=== PATIENT | male | born 1945 | race Caucasian/White ===

== ENCOUNTER → 2017-07-23 14:07 | Outpatient (CLI) | payer MEDICARE, OTHER, SELFPAY ==
[2017-07-23 16:01] LABS: Erythrocyte Sedimentation Rate 27 mm/hr (0-20)
[2017-07-23 16:15] LABS: Vitamin D,25 Hydroxy 10.2 ng/mL (19.95-100.01)
[2017-07-23 16:24] LABS: Anion Gap 8 (5-15); BUN 28 mg/dL (7-18); BUN/Creat Ratio 27.2 RATIO (10-20); Calcium,Total 9.1 mg/dL (8.5-10.1); Chloride 106 mmol/L (98-107); Cholesterol 236 mg/dL (200); Creatinine, Serum 1.03 mg/dL (0.70-1.30); EST Glomerular Filtration Rate 75 mL/min (>60); Est Glom Filt Rate - Afr Amer 91 mL/min (>60); Glucose 88 mg/dL (70-110); High Density Lipoprotein 40 mg/dL; Magnesium 2.2 mg/dL (1.6-2.6); Potassium 4.3 mmol/L (3.5-5.1); Sodium Level 139 mmol/L (136-145); Thyroid Stim Hormone (TSH) 1.94 uIU/mL (0.358-3.74); Triglycerides 334 mg/dL; Very Low Density Lipoprotein 67 mg/dL (5-40)
== END ==
PROVIDERS: Family Provider Family Medicine; PCP Family Medicine; Visit Provider Family Medicine
DX: I10 Essential (primary) hypertension (principal); R25.2 Cramp and spasm; F32.9 Major depressive disorder, single episode, unspecified
CPT/HCPCS: 36415; 80048; 80061; 82306; 83735; 84443; 85652

== ENCOUNTER → 2017-10-13 13:34 | Outpatient (CLI) | payer MEDICARE, OTHER, SELFPAY ==
[2017-10-13 14:19] LABS: PSA,Total- Diagnostic 0.61 ng/mL (0.0-4.0)
== END ==
PROVIDERS: Family Provider Family Medicine; PCP Family Medicine; Visit Provider Nurse Practitioner Adult Health
DX: R97.20 Elevated prostate specific antigen [PSA] (principal)
CPT/HCPCS: 36415; 84153

== ENCOUNTER 2017-12-06 01:20 | Emergency (ER) | payer MEDICARE, OTHER, SELFPAY ==
[2017-12-06 01:21] VITALS: BP 152/80; PULSE 53; RESP 16; TEMP 36.5; O2SAT 96; BMI 33.0
[2017-12-06 01:27] VITALS: O2SAT 95
--- NOTE | 2017-12-06 01:52 | CT_ITS ---
STUDY: CT BRAIN WITHOUT CONTRAST REASON FOR EXAM: Male, 72 years old. ROLLED OUT OF BED AND HIT HEAD ON TABLE, ON ELIQUIS, PT HAS LACERATION POSTERIOR HEAD AND C/O NECK PAIN RADIATION DOSAGE (If Supplied By Facility): CTDIvol = ( 44.99 ) mGy, DLP = ( 863.60 ) mGycm TECHNIQUE: Transaxial CT imaging of the brain was performed without administration of intravenous contrast material. Individualized dose optimization techniques were used for this CT. COMPARISON: None. FINDINGS: Normal soft tissue structures. Normal calvarium. There is mild cerebral atrophy with widening of the extra-axial spaces and ventricular dilatation. There are areas of decreased attenuation within the white matter tracts of the supratentorial brain, consistent with microvascular disease changes. Normal basal ganglia and thalami. Normal brainstem. Normal cerebellum. There is no intracranial hemorrhage. There are no findings of an acute ischemic infarction. Normal visualized paranasal sinuses. CT/Brain/Head without Contrast IMPRESSION: Chronic involutional changes of the brain. Electronically Signed: Yuri Callejas MD at 3:26 EDT Tel , Service support ,
--- NOTE | 2017-12-06 02:08 | CT_ITS ---
STUDY: CT CERVICAL SPINE WITHOUT CONTRAST REASON FOR EXAM: Male, 72 years old. Neck pain RADIATION DOSAGE (If Supplied By Facility): CTDIvol = ( 26.74 ) mGy, DLP = ( 629.42 ) mGycm TECHNIQUE: High resolution transaxial imaging was performed without contrast material. Sagittal and coronal images were reconstructed. Individualized dose optimization techniques were used for this CT. COMPARISON: None FINDINGS: Normal craniovertebral junction. Normal anterior atlantoaxial articulation. Normal odontoid process. Normal cervical lordosis. Normal vertebral bodies and posterior osseous elements. C2-3: Normal endplates. Normal disc height and morphology. Normal central canal and intervertebral neuroforamina. C3-4: Endplate spondylosis. Central and paracentral disc bulge. Degenerative changes of the bilateral facet joints and uncovertebral joints. Mild narrowing of the central canal and the bilateral intervertebral neural foramina. C4-5: Endplate spondylosis. Central and paracentral disc bulge. Degenerative changes of the bilateral facet joints and uncovertebral joints. Mild narrowing of the central canal and the bilateral intervertebral neural foramina. C5-6: Endplate spondylosis. Central and paracentral disc bulge. Degenerative changes of the bilateral facet joints and uncovertebral joints. Mild narrowing of the central canal and the bilateral intervertebral neural foramina. C6-7: Endplate spondylosis. Central and paracentral disc bulge. Degenerative changes of the bilateral facet joints and uncovertebral joints. Mild narrowing of the central canal and the bilateral intervertebral neural foramina. C7-T1: Normal endplates. Normal disc height and morphology. Normal central canal and intervertebral neuroforamina. Normal visualized soft tissue structures. CT/Spine Cervical without Contras IMPRESSION: Multilevel degenerative changes, as described above. Electronically Signed: Yuri Callejas MD at 3:24 EDT Tel , Service support ,
[2017-12-06] MEDS: Diphth,Pertuss(Acell),Tet Vac 0.5 ML Vial IM (02:39)
[2017-12-06 03:42] VITALS: BP 146/88; PULSE 86; RESP 16; O2SAT 97
--- NOTE | 2017-12-06 03:58 | ED.VISSUMM ---
- ER Visit Summary Date of Service: 12/06/17 Chief Complaint: [] Fall with head laceration History of Present Illness: The patient is a 72 M [] patient stated he rolled out of bed and hit his head on the table an hour and half prior to coming in. He is on Eliquis blood thinners. Last tetanus is unknown. Denies any other injury except for some mild neck soreness Physical Examination: [] Vital signs reviewed General: Well-nourished well-developed Head: 2 lacerations left parietal scalp. One measures 1-1/2 cm. The other measures 3 cm. There is superficial but full-thickness. Small laceration to the external auricle measuring 2 cm left lateral ear with contusion to the left portions of the inner ear without hematoma Eyes: Pupils equal round and reactive to light extraocular movements intact ENT: TMs clear no hemotympanum no trauma Neck: Nontender full range of motion Cardiovascular: Regular rate rhythm no murmurs normal S1-S2 Respiratory: No distress clear to auscultation bilaterally chest nontender Abdomen: Soft nontender nondistended normal bowel sounds no masses Back: Nontender no CVA tenderness Extremities: Nontender active range of motion ?4 extremities no trauma Skin: Normal color no trauma Neuro alert oriented cranial nerves II through XII intact normal strength sensation reflexes Test Results: [] Emergency Department Course and Treatment: [] CT head and neck were negative for fracture or abnormality. Patient given a tetanus shot. His wounds were cleansed with iodine. His scalp wounds were closed with 4 simple yudi on the largest one and 2 simple yudi on the smallest. Bacitracin was applied his wound was dressed. His left ear was cleansed with iodine and washed with saline. It was closed with 4 simple sutures. It was dressed as well as well as bacitracin. Patient will follow-up as an outpatient. Treatment Plan: [] Disposition: [] Impression: [] Scalp laceration ?2 status post closure with staple Left ear laceration status post suture This note was generated with [employer] dictation software. It may contain incorrect words, spelling, and punctuation that were not noted in review of the chart prior to signing ED Disposition - Plan for ED Patient: Chief Complaint: Head Injury Referrals: Haresh Hoffman MD [Primary Care Provider] -
--- NOTE | 2017-12-06 04:00 | ED.DEP ---
ED Disposition - Plan for ED Patient: Disposition: Home or Assisted Living Chief Complaint: Head Injury Instructions: ED Laceration Scalp Stitch Or Stap Referrals: Haresh Hoffman MD [Primary Care Provider] -
== END 2017-12-06 04:13 | disposition home or self-care (01) ==
PROVIDERS: Emergency Provider Emergency Medicine; Family Provider Family Medicine; PCP Family Medicine
DX: S01.01XA Laceration without foreign body of scalp, initial encounter (principal); S01.312A Laceration without foreign body of left ear, initial encounter; W06.XXXA Fall from bed, initial encounter; Y93.84 Activity, sleeping; Y92.9 Unspecified place or not applicable; Y99.9 Unspecified external cause status; Z23 Encounter for immunization; Z79.01 Long term (current) use of anticoagulants; Z79.899 Other long term (current) drug therapy
CPT/HCPCS: 12002; 12011; 70450; 72125; 90715; 99282

== ENCOUNTER 2018-01-19 21:12 | Emergency (ER) | payer MEDICARE, OTHER, SELFPAY ==
[2018-01-19 21:13] VITALS: BP 116/57; PULSE 95; RESP 20; TEMP 36.8; O2SAT 95; BMI 32.8
--- NOTE | 2018-01-19 21:43 | RAD_ITS ---
STUDY: X-RAY - THORACIC SPINE REASON FOR EXAM: Male, 72 years old. Trauma TECHNIQUE: 3 view(s) of the thoracic spine were obtained. COMPARISON: None. FINDINGS: Normal kyphosis of the thoracic spine. There is a mild midthoracic dextroscoliosis. There is diffuse flowing osteophytosis of the thoracic spine. Normal disc space heights. The soft tissue structures are unremarkable. RAD/Thoracic Spine 3 Views IMPRESSION: Mild midthoracic dextroscoliosis. Diffuse osteophytosis of the thoracic vertebrae. There is no evidence of acute fracture or subluxation. Disc spacing is preserved. Electronically Signed: Jg Rubio MD at 22:15 EDT , Service support ,
--- NOTE | 2018-01-19 21:55 | RAD_ITS ---
STUDY: X-RAY - BILATERAL RIBS WITH CHEST REASON FOR EXAM: Male, 72 years old. Trauma TECHNIQUE - RIBS: 9 view(s) of the ribs. TECHNIQUE - CHEST: Single PA view of the chest. COMPARISON: Prior chest study of 05/02/2016 FINDINGS - RIBS : Normal visualized ribs without a demonstrated fracture. FINDINGS - CHEST: The lungs are clear and expanded. There is no demonstrated pleural abnormality. Normal size heart. Normal mediastinum and orin. Normal visualized pulmonary arteries. Normal visualized aortic arch and descending thoracic aorta. There are diffuse degenerative changes of the thoracic spine. Normal visualized ribs, clavicles, and shoulders. There is no demonstrated abnormality of the visualized soft tissue structures of the upper abdomen. RAD/Ribs Alex Min 4V w/PA Chest IMPRESSION: RIBS: Normal x-ray examination of the bilateral ribs. CHEST: Degenerative changes of the thoracic spine. No acute cardiopulmonary disease process is seen. Electronically Signed: Jg Rubio MD at 22:20 EDT , Service support ,
[2018-01-19] MEDS: Acetaminophen 500 MG Tablet 1000 MG PO (22:21)
--- NOTE | 2018-01-19 23:01 | ED.VISSUMM ---
- ER Visit Summary Date of Service: 01/19/18 Chief Complaint: Fall History of Present Illness: The patient is a 72 M presenting for evaluation after a fall. Patient reports that he was taking a shower because his told him to clean his dirty feet before he got in bed. Patient reports that he slipped off of the seat in the shower and fell directly onto his backside on the ground. Patient reports that after he laid there for a little while he was able to stand up and walk and actually eat some dinner, but after he ate dinner he sat down into his recliner and had onset of paroxysmal pain shooting throughout his chest and through his back. He denies any radiation of the pain. No bowel or bladder incontinence, no weakness or numbness associated with this. Review of systems otherwise negative. Physical Examination: Well-nourished male no acute distress. Head normocephalic, ENT shows no trauma. Neck was nontender full range of motion. Heart regular rate and rhythm lungs sounds clear to all station bilaterally. Chest was tender in the left anterior portion of the chest without any evidence of step-offs crepitus or deformity. Abdomen was soft and nontender. Back was tender in the lower thoracic spine in the midline without any evidence of step-offs. Normal range of motion of the upper and lower extremities. Skin normal color no rash. Patient was alert and oriented. Test Results: Thoracic x-rays as well as rib x-rays are negative per radiology Emergency Department Course and Treatment: Patient presented for evaluation secondary to mechanical fall. Radiographs were obtained and found to be negative. Patient was given acetaminophen and Flexeril for treatment of his pain. Went back and reevaluated the patient he was seeming to have some paroxysms of pain which I believe likely are secondary to some muscle spasm. Patient will be sent home with a course of [place] and Flexeril for treatment of pain as he is anticoagulated and cannot take NSAIDs. Disposition: Discharge Impression: 1. Mechanical fall 2. Back strain This note was generated with [employer] dictation software. It may contain incorrect words, spelling, and punctuation that were not noted in review of the chart prior to signing ED Disposition - Plan for ED Patient: Disposition: Home or Assisted Living Chief Complaint: Fall Diagnosis: Back strain Instructions: ED Mechanical Fall, ED Sprain Strain Lumbar Prescriptions: Hydrocodone Bitart/Apap 5-325 [[place] 5MG-325MG] 1 tab PO Q4H PRN PRN 2 Days #10 tab PRN Reason: Pain Cyclobenzaprine [Flexeril] 10 mg PO TID PRN #20 tab PRN Reason: Muscle Spasm Referrals: Haresh Hoffman MD [Primary Care Provider] - 3-5 Days
--- NOTE | 2018-01-19 23:06 | ED.DCSUM_ITS ---
- ER Visit Summary Date of Service: 01/19/18 Chief Complaint: Fall History of Present Illness: The patient is a 72 M presenting for evaluation after a fall. Patient reports that he was taking a shower because his told him to clean his dirty feet before he got in bed. Patient reports that he slipped off of the seat in the shower and fell directly onto his backside on the ground. Patient reports that after he laid there for a little while he was able to stand up and walk and actually eat some dinner, but after he ate dinner he sat down into his recliner and had onset of paroxysmal pain shooting throughout his chest and through his back. He denies any radiation of the pain. No bowel or bladder incontinence, no weakness or numbness associated with this. Review of systems otherwise negative. Physical Examination: Well-nourished male no acute distress. Head normocephalic , ENT shows no trauma. Neck was nontender full range of motion. Heart regular rate and rhythm lungs sounds clear to all station bilaterally. Chest was tender in the left anterior portion of the chest without any evidence of step- offs crepitus or deformity. Abdomen was soft and nontender. Back was tender in the lower thoracic spine in the midline without any evidence of step-offs. Normal range of motion of the upper and lower extremities. Skin normal color no rash. Patient was alert and oriented. Test Results: Thoracic x-rays as well as rib x-rays are negative per radiology Emergency Department Course and Treatment: Patient presented for evaluation secondary to mechanical fall. Radiographs were obtained and found to be negative. Patient was given acetaminophen and Flexeril for treatment of his pain. Went back and reevaluated the patient he was seeming to have some paroxysms of pain which I believe likely are secondary to some muscle spasm. Patient will be sent home with a course of [place] and Flexeril for treatment of pain as he is anticoagulated and cannot take NSAIDs. Disposition: Discharge Impression: 1. Mechanical fall 2. Back strain This note was generated with [employer] dictation software. It may contain incorrect words, spelling, and punctuation that were not noted in review of the chart prior to signing ED Disposition - Plan for ED Patient: Disposition: Home or Assisted Living Chief Complaint: Fall Diagnosis: Back strain Instructions: ED Mechanical Fall, ED Sprain Strain Lumbar Prescriptions: Hydrocodone Bitart/Apap 5-325 [[place] 5MG-325MG] 1 tab PO Q4H PRN PRN 2 Days #10 tab PRN Reason: Pain Cyclobenzaprine [Flexeril] 10 mg PO TID PRN #20 tab PRN Reason: Muscle Spasm Referrals: Haresh Hoffman MD [Primary Care Provider] - 3-5 Days
[2018-01-19 23:27] VITALS: BP 127/86; PULSE 91; RESP 16; O2SAT 99
== END 2018-01-19 23:28 | disposition home or self-care (01) ==
PROVIDERS: Emergency Provider Emergency Medicine; Family Provider Family Medicine; PCP Family Medicine
DX: S29.012A Strain of muscle and tendon of back wall of thorax, initial encounter (principal); M62.830 Muscle spasm of back; W17.89XA Other fall from one level to another, initial encounter; Y93.E1 Activity, personal bathing and showering; Y92.9 Unspecified place or not applicable; Y99.9 Unspecified external cause status; Z79.01 Long term (current) use of anticoagulants; Z79.899 Other long term (current) drug therapy; Z86.711 Personal history of pulmonary embolism
CPT/HCPCS: 71111; 72072; 99285

== ENCOUNTER → 2018-04-09 11:10 | Outpatient (CLI) | payer MEDICARE, OTHER, SELFPAY ==
[2018-04-09 12:11] LABS: PSA,Total- Diagnostic 0.54 ng/mL (0.0-4.0)
[2018-04-10 15:49] LABS: PSA, Total 0.5 ng/mL (0.0-4.0)
== END ==
PROVIDERS: Family Provider Family Medicine; PCP Family Medicine; Referring Provider Nurse Practitioner Adult Health; Visit Provider Nurse Practitioner Adult Health
DX: C61 Malignant neoplasm of prostate (principal)
CPT/HCPCS: 36415; 84153

== ENCOUNTER 2018-07-19 16:28 | Emergency (ER) | payer MEDICARE, OTHER, SELFPAY ==
[2018-07-09 12:47] VITALS: BMI 34.2
[2018-07-19 16:29] VITALS: BP 134/93; PULSE 72; RESP 16; TEMP 36.6; O2SAT 95; BMI 34.4
--- NOTE | 2018-07-19 16:51 | ED.VISSUMM ---
- ER Visit Summary Date of Service: 07/19/18 Chief Complaint: Left leg pain. History of Present Illness: The patient is a 72 M who presents with 3 days of left leg pain. He describes the pain is in the calf. He states when he goes to bear weight with certain motions the pain is worse. There is no thigh pain. There is no low back pain. 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 He is on Eliquis and denies missing any doses. 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 The patient states that sometimes in the shower he feels like the leg goes numb. Reports history of prostate cancer and psoriasis. He has access to a walker that he can use for support. He does not wish anything for pain. Physical Examination: Afebrile vital signs are stable Gen: Well-nourished well-developed Head: Normocephalic atraumatic Eyes: Perrl EOMI ENT: TMs clear no rhinorrhea moist mucous membranes Neck: Supple no lymphadenopathy no JVD nontender CVS: Regular rate rhythm no murmurs normal S1-S2 Respiratory: No distress clear to auscultation bilaterally chest nontender Abdomen: Soft nontender nondistended normal bowel sounds no masses Back: Nontender Extremity: There is left greater than right lower extremity edema pronounced at the sock line. The calf is tender. There are some varicose veins but no palpable cords. He has pain with flexion extension at the knee joint. The knee is not swollen or edematous Skin: Normal color no rash Neuro: alert orientated ?3 CN II-XII intact normal strength sensation reflexes gait cerebellar Psych: Normal affect normal mood Emergency Department Course and Treatment: Based on the history and physical exam patient's not considered appropriate for d-dimer testing. He needs to have a duplex ultrasound. However on Friday afternoon we did not have duplex ultrasound. I will write for the patient to obtain this tomorrow. Return if worsening or concerns. He should follow-up with his doctors. Impression: 1. Left calf pain This note was generated with [email or web address] dictation software. It may contain incorrect words, spelling, and punctuation that were not noted in review of the chart prior to signing ED Disposition - Plan for ED Patient: Disposition: Home or Assisted Living Chief Complaint: Lower Extremity Injury Instructions: Understanding Deep Vein Thrombosis Referrals: Ranney,Haresh, MD [Primary Care Provider] - As soon as possible Additional Instructions: You should obtain a leg ultrasound tomorrow. If it is negative should follow-up with your primary care physician. If it is positive you will be brought to the emergency room. Use walker for support
[2018-07-19] MEDS: Acetaminophen 500 MG Tablet 1000 MG PO (17:31)
[2018-07-19 17:47] VITALS: BP 141/84; PULSE 78; RESP 18; O2SAT 96
--- NOTE | 2018-07-19 17:49 | ED.RN ---
Pt assisted into wheelchair and assisted out to the car. Pt refused help getting into the car. Pt ambulated self into car from wheelchair. Pt guarding left leg. States has walker at home to use for ambulation. education given about DVT ultrasound and scheduling. Denies questions.
== END 2018-07-19 17:48 | disposition home or self-care (01) ==
LOC: ED 17:21
PROVIDERS: Emergency Provider Emergency Medicine; Family Provider Family Medicine; PCP Family Medicine
DX: M79.662 Pain in left lower leg (principal); I25.10 Atherosclerotic heart disease of native coronary artery without angina pectoris; I10 Essential (primary) hypertension; G47.33 Obstructive sleep apnea (adult) (pediatric); Z79.01 Long term (current) use of anticoagulants; Z79.899 Other long term (current) drug therapy; Z86.718 Personal history of other venous thrombosis and embolism; Z86.711 Personal history of pulmonary embolism; Z85.46 Personal history of malignant neoplasm of prostate
CPT/HCPCS: 99283

== ENCOUNTER → 2018-07-20 09:47 | Outpatient (CLI) | payer MEDICARE, OTHER, SELFPAY ==
[2018-07-19 16:29] VITALS: BMI 34.4
--- NOTE | 2018-07-20 09:52 | VDLE_ITS ---
Reason For Study: LLE swelling/pain RIGHT LEFT CFV is compressible, spontaneous, phasic, GSV is normal. competent and demonstrates normal CFV is compressible, spontaneous, phasic, augmentation. competent, and demonstrates normal Procedure augmentation. Exam performed in department. FV is partially compressible with vein wall A preliminary report was called and/or faxed thickening, spontaneous, phasic, competent to Yasmin. and demostrates normal augmentation. POP V is partially compressible with vein wall thickening, spontaneous, phasic, competent and demostrates normal augmentation. T/P Trunk is compressible. PTV is compressible. LT PerV is compressible. Interpretation Summary Chronic venous changes are noted in the left femoral vein and popliteal vein, which are partially compressible and demonstrate chronic vein wall thickening. The remainder of the left lower extremity deep venous system is patent and compressible. Valvular competence appears intact within the proximal deep venous system on the left . The left greater saphenous vein appears patent and compressible segmentally. Ordering Physician: Pablo Espinosa Referring Physician: Hi Hoffman MD Performed By: Kasey Fraser RVT and Student
== END ==
PROVIDERS: Family Provider Family Medicine; PCP Family Medicine; Referring Provider Emergency Medicine; Visit Provider Emergency Medicine
DX: M79.89 Other specified soft tissue disorders (principal)
CPT/HCPCS: 93971